=== PATIENT | female | born 1930 | race Caucasian/White ===

== ENCOUNTER 2017-05-20 07:03 | Inpatient (IN) | payer MEDICARE, MEDICAID ==
[2017-05-20 07:25] VITALS: BMI 39.0
--- NOTE | 2017-05-20 07:49 | C.PDOC ---
History Of Present Illness Patient is an 87 y/o female, with a Hx of CHF and asthma, who presents to the ED with complaints of recurring SOB for the last 3-4 days. By remote sensing advisor, patient experiences dyspnea on exertion and recurring bilateral pedal edema; denies CP, fever, or cough. Protein Chemist states patient uses home O2 tank only at night and takes Lasix 20 mg every other day. Patient has no other physical complaints at this time. VIA TRANS recur sob x 3-4 DAYS. HO PRIOR CHF, ASTHMA. +MATTHEWS, RECUR B/L FEET SWELLING. NO CP , FEVER, COUGH. USES HOME O2 "ONLY AT NIGHT". ON LASIX 20 MG QOD EXAM MILD RESP DIST NONTOXIC LUNGS +TACHYPNEA SPEAKING FULL SENTENCES. +SCATTERED OCC EXP WHEEZE, +RALES +2+PITTING EDEMA B/L LE REMAINDE RNEG Time Seen by Provider: 05/20/17 07:27 Chief Complaint (Nursing): Shortness Of Breath History Per: Patient History/Exam Limitations: no limitations Onset/Duration Of Symptoms: Days (3-4 days) Current Symptoms Are (Timing): Still Present Exacerbating Factor(s): Exertion (MATTHEWS) Associated Symptoms: denies: Chest Pain Recent travel outside of the [place]: No Past Medical History Reviewed: Historical Data, Nursing Documentation, Vital Signs Vital Signs: Last Vital Signs Temp 97.6 F 05/21/17 23:15 Pulse 89 05/22/17 04:22 Resp 18 05/22/17 05:10 BP 110/70 05/21/17 23:15 Pulse Ox 96 05/22/17 07:20 - Medical History PMH: Arthritis, Asthma, CHF, HTN, Hypercholesterolemia Surgical History: Cholecystectomy - [facility] Procedures ENDOSC POLYPECTOMY OF LG INTEST (03/15/07) Family History: States: No Known Family Hx - Social History Hx Alcohol Use: No Hx Substance Use: No - Immunization History Hx Tetanus Toxoid Vaccination: Yes Hx Influenza Vaccination: Yes Hx Pneumococcal Vaccination: Yes Review Of Systems Except As Marked, All Systems Reviewed And Found Negative. Constitutional: Negative for: Fever Cardiovascular: Negative for: Chest Pain Respiratory: Positive for: Shortness of Breath, SOB with Excertion. Negative for: Cough Physical Exam - Physical Exam Appears: Non-toxic, In Acute Distress (mild respiratory distress) Skin: Normal Color, Warm, Dry Head: Atraumatic, Normacephalic Oral Mucosa: Moist Respiratory: Rales, Wheezing (scattered occasional expiratory wheeze), Other ( tachypnea) Extremity: Pedal Edema (+2 pitting pedal edema of bilateral LE) Neurological/Psych: Oriented x3, Normal Speech (speaking full sentences) ED Course And Treatment - Laboratory Results Result Diagrams: 05/20/17 08:12 05/20/17 08:12 ECG: Interpreted By Me ECG Rhythm: Sinus Rhythm ECG Interpretation: Normal Rate From EC O2 Sat by Pulse Oximetry: 96 (room air) Pulse Ox Interpretation: Normal (2L) - Radiology CXR: Interpreted by Me CXR Interpretation: Yes: Other (chf) Progress Note: EKG ordered; Nebulizer treatment and High Flow NS administered. Medrol, Albuterol, and Lasix administered. Call for admission by Dr. Ledesma. Progress - Re-Evaluation Re-evaluation Note: 05/20/17 09:18 PT REFUSING BEDPAN USE, PERSIST MATTHEWS FROM STRETCHER TO BEDSIDE COMMODE BUT FEELS BETTER W VAPOTHERM. D/W PMD WILL ADMIT - Data Reviewed Data Reviewed: Lab, Diagnostic imaging, EKG, Old records - Continuity of Care Discussed patient case with:: Patient, Covering for PMD Disposition Counseled Patient/Family Regarding: Studies Performed, Diagnosis - Disposition Disposition: HOSPITALIZED Disposition Time: 09:19 Condition: STABLE - POA Present On Arrival: None - Clinical Impression Clinical Impression: CHF exacerbation, Asthma exacerbation - Scribe Statement The provider has reviewed the documentation as recorded by the Scribe Perla Rodriguez All medical record entries made by the Scribe were at my direction and personally dictated by me. I have reviewed the chart and agree that the record accurately reflects my personal performance of the history, physical exam, medical decision making, and the department course for this patient. I have also personally directed, reviewed, and agree with the discharge instructions and disposition. Decision To Admit - Pt Status Changed To: Hospital Disposition Of: Observation - . Bed Request Type: Telemetry Admitting Physician: Walter Velasquez Patient Diagnosis: CHF exacerbation, Asthma exacerbation
[2017-05-20] MEDS ORDERED: Albuterol 0.042% Inhal Sol (1.25 mg/3 mL) UD INH STA (07:52)
[2017-05-20] MEDS ORDERED: Albuterol 0.042% Inhal Sol (1.25 mg/3 mL) UD ONE (08:17)
[2017-05-20] MEDS ORDERED: MethylPREDNISolone 40 mg Vial ONE (08:17)
[2017-05-20 08:23] LABS: BASO # 0.1 K/uL (0.0-0.2); EOS # 0.5 K/uL (0.0-0.7); EOS % 5.6 % (0.0-4.0); HEMATOCRIT 28.9 % (34.0-47.0); LYMPH # 1.8 K/uL (1.0-4.3); LYMPH % 18.6 % (20.0-40.0); MEAN CELL VOLUME 85.6 fL (81.0-99.0); MEAN CORPUSCULAR HEMOGLOBIN 28.9 pg (27.0-31.0); MEAN CORPUSCULAR HGB CONC 33.8 g/dL (33.0-37.0); MEAN PLATELET VOLUME 7.9 fL (7.2-11.7); MONO # 0.7 K/uL (0.0-0.8); MONO % 7.3 % (0.0-10.0); RED CELL DISTRIBUTION WIDTH 14.8 % (11.5-14.5); WHITE BLOOD COUNT 9.7 K/uL (4.8-10.8)
[2017-05-20 08:36] LABS: VENOUS BLOOD GAS PCO2 48 mmHg (40-60); VENOUS BLOOD PH 7.36 (7.32-7.43)
[2017-05-20 09:04] LABS: CHLORIDE 100 mmol/L (98-107); SODIUM 136 mmol/L (132-148)
[2017-05-20 09:05] LABS: POTASSIUM 4.8 mmol/L (3.6-5.2)
[2017-05-20 09:07] LABS: ALB/GLOB RATIO 1.3 (1.0-2.1); ALKALINE PHOSPHATASE 41 U/L (38-126); ALT/SGPT 55 U/L (9-52); AST/SGOT 34 U/L (14-36); BILIRUBIN,TOTAL 0.5 mg/dL (0.2-1.3); BLOOD UREA NITROGEN 21 mg/dL (7-17); CARBON DIOXIDE 22 mmol/L (22-30); GFR AFRICAN-AMERICAN > 60; GLUCOSE,RANDOM 82 mg/dL (65-105); TOTAL PROTEIN 6.7 g/dL (6.3-8.3)
[2017-05-20 09:08] LABS: CALCIUM 8.7 mg/dl (8.6-10.4)
--- NOTE | 2017-05-20 10:20 | RAD ---
PROCEDURE: CHEST RADIOGRAPH, 1 VIEW HISTORY: Shortness of breath COMPARISON: 05/20/2017 FINDINGS: LUNGS: Prominent diffuse increased interstitial lung markings bilaterally suggestive for moderate to severe venous congestion. Patchy consolidative changes within the right mid and lower lung zones. Small bilateral pleural effusions. Additional patchy consolidative change at the left lung base. PLEURA: As above. CARDIOVASCULAR: Cardiomegaly. Enlarged ectatic aorta. OSSEOUS STRUCTURES: No significant abnormalities. VISUALIZED UPPER ABDOMEN: Normal. OTHER FINDINGS: None. IMPRESSION: Prominent diffuse increased interstitial lung markings bilaterally suggestive for moderate to severe venous congestion. Patchy consolidative changes within the right mid and lower lung zones. Small bilateral pleural effusions. Additional patchy consolidative change at the left lung base. Cardiomegaly. Enlarged ectatic aorta.
[2017-05-20] MEDS ORDERED: Albuterol HFA 90 mcg/actuation (8 g) IH PRN (16:45)
[2017-05-20] MEDS: (Novolog) Insulin Aspart, Recombinant 100 u/ml 10 ml vial SC SCH ×2 (17:00→22:49)
[2017-05-21] MEDS: (Novolog) Insulin Aspart, Recombinant 100 u/ml 10 ml vial SC SCH ×4 (08:25→23:00)
[2017-05-21] MEDS ORDERED: Home Med 1 UNIT (Meloxicam [Meloxicam] 15 MG) PO SCH (10:00)
[2017-05-21] MEDS ORDERED: PROMETHAZINE HCL PO SCH (10:00)
[2017-05-21] MEDS ORDERED: MULTIVITAMIN PO SCH (10:00)
[2017-05-21] MEDS ORDERED: IRON PO SCH (10:00)
[2017-05-21] MEDS ORDERED: FOLIC ACID PO SCH (10:00)
[2017-05-21] MEDS ORDERED: CODEINE PO SCH (10:00)
[2017-05-21] MEDS ORDERED: Digoxin 250 mcg (0.25 mg) Tab PO STA (11:21)
[2017-05-21] MEDS: Multiple Vitamins Tab PO SCH (11:26)
[2017-05-21] MEDS ORDERED: Digoxin 250 mcg (0.25 mg) Tab PO SCH (18:00)
[2017-05-21] MEDS: Digoxin 125 mcg (0.125 mg) Tab PO SCH (18:18)
--- NOTE | 2017-05-22 05:10 | HP ---
HISTORY OF PRESENT ILLNESS: This is an 87 years old [place] female with history of multiple medical problems presented to the emergency room with symptoms of shortness of breath that was progressed over 2 days. The patient was evaluated in the emergency room and she was found to have congestive heart failure subsequently the patient was admitted to telemetry floor. While the patient was in telemetry, she developed atrial fibrillation with rapid ventricular rate. The patient was started on both digoxin as well as metoprolol, continue the metoprolol and she was started on Eliquis 2.5 mg twice a day. The patient denied to have any cough or expectoration. No fever. REVIEW OF SYSTEMS: All other review of systems is negative except for dysfunctional gait with need for walking assistance with a walker or a cane. ALLERGIES: NO KNOWN ALLERGIES. HOME MEDICATIONS: Include Symbicort 1 puff twice a day, bisoprolol 5 mg daily, atorvastatin 20 mg daily, aspirin 81 mg daily, gabapentin 600 mg 3 times a day, alendronate 70 mg daily, Lasix 20 mg daily, glimepiride 2 mg twice a day, Singulair 10 mg daily, and losartan and hydrochlorothiazide 50/12.5 daily, and multivitamin 1 tablet daily. PAST MEDICAL HISTORY: Type 2 diabetes mellitus, hypertension, diabetic neuropathy, hypercholesterolemia, and COPD. SOCIAL HISTORY: No history of smoking, ETOH, or substance abuse. FAMILY HISTORY: Noncontributory. PHYSICAL EXAMINATION: GENERAL: The patient is in bed, comfortable, and not in any cardiopulmonary distress. VITAL SIGNS: At the time of this examination with blood pressure 100/56, temperature 98.7, respiratory rate 20, and pulse is 70. HEENT: Pupils equal and reactive to light. Normal appearing mucosa of the conjunctivae, oropharyngeal, and nasal membrane mucosa. NECK: Supple. No JVD. No carotid bruit. No lymph node. No thyromegaly. CHEST AND LUNGS: Bilateral symmetrical expansion, few basilar rales. CARDIOVASCULAR: PMI not localized. S1 and S2. No additional sounds. ABDOMEN: Normoactive bowel sounds. No tenderness. No organomegaly. No masses. EXTREMITIES: No cyanosis. No clubbing. No edema. CENTRAL NERVOUS SYSTEM: Alert, awake, and oriented x2. No neurological deficit could be appreciated. ASSESSMENT: 1. Congestive heart failure both systolic and diastolic, acute on top of chronic. 2. Chronic obstructive pulmonary disease. 3. . 4. Status post hypertension. 5. Atrial fibrillation with rapid ventricular rate. PLAN: Continue diuretics. We will give the patient another dose of digoxin 0.25 mg. Continue Eliquis and discussed the patient's condition with her son at the bedside. [facility] MD Ron
[2017-05-22 07:35] LABS: BASO # 0.1 K/uL (0.0-0.2); BASO % 0.7 % (0.0-2.0); EOS # 0.5 K/uL (0.0-0.7); EOS % 3.9 % (0.0-4.0); HEMATOCRIT 29.5 % (34.0-47.0); LYMPH # 3.2 K/uL (1.0-4.3); LYMPH % 26.4 % (20.0-40.0); MEAN CELL VOLUME 85.4 fL (81.0-99.0); MEAN CORPUSCULAR HEMOGLOBIN 28.3 pg (27.0-31.0); MEAN CORPUSCULAR HGB CONC 33.1 g/dL (33.0-37.0); MEAN PLATELET VOLUME 7.7 fL (7.2-11.7); RED CELL DISTRIBUTION WIDTH 14.4 % (11.5-14.5); WHITE BLOOD COUNT 11.9 K/uL (4.8-10.8)
[2017-05-22] MEDS: (Novolog) Insulin Aspart, Recombinant 100 u/ml 10 ml vial SC SCH ×4 (07:47→22:33)
[2017-05-22 07:49] LABS: CHLORIDE 93 mmol/L (98-107)
[2017-05-22 07:50] LABS: POTASSIUM 4.2 mmol/L (3.6-5.2); SODIUM 135 mmol/L (132-148)
[2017-05-22 07:52] LABS: GFR AFRICAN-AMERICAN > 60
[2017-05-22 07:53] LABS: BLOOD UREA NITROGEN 35 mg/dL (7-17); CALCIUM 8.9 mg/dl (8.6-10.4); CARBON DIOXIDE 31 mmol/L (22-30); GLUCOSE,RANDOM 120 mg/dL (65-105)
[2017-05-22] MEDS: Multiple Vitamins Tab PO SCH (10:10)
[2017-05-22] MEDS: Albuterol-Ipratrop 3 mg / 0.5 (3 ml) UD INH SCH ×2 (13:30→19:46)
[2017-05-22] MEDS: Digoxin 125 mcg (0.125 mg) Tab PO SCH (18:41)
--- NOTE | 2017-05-23 01:53 | CON ---
DATE: CARDIOLOGY CONSULT REASON FOR CONSULTATION: New onset atrial fibrillation. HISTORY OF PRESENT ILLNESS: The patient is 87 years old morbidly obese, [place] female, who has a history of chronic obstructive lung disease, on home nasal O2 for the past 20 years according to the patient. The patient is unaware of any prior cardiac history and she follows with Dr. Boone as an outpatient. The patient developed rapid atrial fibrillation last night. The patient was started on Lanoxin and Eliquis. The patient denies any retrosternal chest pain. Denies any dizziness or syncope recently. The patient is unaware of any history of coronary artery disease or history of stroke in the past. SOCIAL HISTORY: Nonsmoker. MEDICATIONS: Amaryl 1 mg daily, aspirin 81 mg once a day, Cozaar 50 mg once a day, Crestor 10 mg once a day, albuterol inhaler, Eliquis 2.5 mg twice a day, Lanoxin 0.125 mg once a day, Lasix 20 mg intravenously twice a day, hydrochlorothiazide 12.5 mg once a day, and Zebeta 5 mg daily. REVIEW OF SYSTEMS: No fever or chills. No vomiting or diarrhea. No retrosternal chest pain. No productive cough. PHYSICAL EXAMINATION: GENERAL: The patient is an elderly female who does not appear to be in acute distress. VITAL SIGNS: Blood pressure 134/72, heart rate 96, temperature 98, respirations 18. HEENT: [place] conjunctiva. CHEST: Minimal coarse crepitations basally. HEART: S1 and S2 regular. ABDOMEN: Soft. EXTREMITIES: 2 to 3+ pitting edema. LABORATORY DATA: SMA-7, sodium 135, potassium 4.2, chloride 93, CO2 31, glucose 120, BUN 35, creatinine 1.0. Hemoglobin and hematocrit 9.8 and 29.5, white count is 11.5, platelet count 325,000. Chest x-ray revealed borderline cardiomegaly, moderate CHF, bilateral lower lobe infiltrate can be excluded. EKG on admission on the revealed sinus rhythm at rate of 77. The follow on EKG later on the same day revealed atrial fibrillation with rapid ventricular response at the rate 124. Preliminary echocardiographic study reveled normal ejection fraction, severe pulmonary hypertension, severe mitral insufficiency, significantly dilated left atrium, and mild aortic stenosis. ASSESSMENT: 1. New onset atrial fibrillation. 2. Advanced chronic obstructive lung disease. 3. Rule out underlying pneumonia. 4. Severe mitral insufficiency. 5. Diabetes mellitus. CONDITIONS: Continue current aspirin 81 mg once a day, Cozaar 50 mg once a day, Crestor 2 mg once a day, Eliquis 2.5 mg once a day, Lanoxin 0.125 mg once a day, Lasix 20 mg intravenously twice a day, Zebeta 5 mg daily. Obtain TSH level. I will administer one stat dose of 40 mg of Lasix. Obtain venous Doppler of lower extremities as well as TSH level. Adriel Dang MD
[2017-05-23] MEDS: Albuterol-Ipratrop 3 mg / 0.5 (3 ml) UD INH SCH ×4 (02:12→19:27)
[2017-05-23] MEDS: (Novolog) Insulin Aspart, Recombinant 100 u/ml 10 ml vial SC SCH ×4 (08:12→21:39)
--- NOTE | 2017-05-23 08:55 | PN ---
DATE: 05/22/2017 DAILY PROGRESS NOTE SUBJECTIVE: The patient is seen today on 05/22/2017. She is less short of breath, but the patient has bilateral lower extremity swelling. PHYSICAL EXAMINATION: VITAL SIGNS: Blood pressure is 140/70, temperature 98.2, respiratory rate 20, and pulse 78. HEENT: Pupils equal and reactive to light. Normal-appearing mucosa of the conjunctiva, oropharynx, and nasal membrane mucosa. NECK: Supple. No JVD. No carotid bruit. No lymph node. No thyromegaly. CHEST AND LUNGS: Bilateral symmetrical expansion. Good air exchange. No rales. No rhonchi. CARDIOVASCULAR: PMI not localized. S1 and S2. No additional sounds. ABDOMEN: Normoactive bowel sounds. No tenderness. No organomegaly. No masses. EXTREMITIES: No cyanosis. No clubbing. No edema. MILLING SUPERVISOR: Alert, awake, and oriented x2. No neurological deficit could be appreciated. ASSESSMENT: 1. Atrial fibrillation with rapid ventricular rate. 2. Exacerbation of congestive heart failure. 3. Acute on chronic systolic and diastolic. PLAN: Continue current medications including the diuretics and digoxin and Eliquis. Discussed with the patient and her daughter at the bedside. Walter Velasquez MD
[2017-05-23] MEDS: Multiple Vitamins Tab PO SCH (09:40)
--- NOTE | 2017-05-23 12:59 | CARD ---
APPROVED REPORT EXAM: Two-dimensional and M-mode echocardiogram with Doppler and color Doppler. Other Information Quality : GoodRhythm : NSR INDICATION Dyspnea Congestive Heart Failure COPD arthritis RISK FACTORS Hyperlipidemia 2D DIMENSIONS IVSd1.2 (0.7-1.1cm)LVDd4.0 (3.9-5.9cm) LVOT Diameter2.0 (1.8-2.4cm)PWd1.1 (0.7-1.1cm) LVDs2.6 (2.5-4.0cm)FS (%) 35.0 % LVEF (%)64.9 (>50%) M-Mode DIMENSIONS Left Atrium (MM)4.23 (2.5-4.0cm)Aortic Root3.26 (2.2-3.7cm) Aortic Cusp Exc.1.54 (1.5-2.0cm) Aortic Valve AoV Peak Pcbhcfay849.1cm/sAoV VTI48.6cmAO Peak GR.29mmHg LVOT Peak Nmgxfwru413.9cm/sLVOT VTI24.10cmAO Mean GR.18mmHg SHELLEY (VMAX)1.60ud7TRQ (VTI)1.32qu7GG P 1/2 Vvbh551yv Mitral Valve E/A ratio0.0 TDI E/Lateral E'0.0E/Medial E'0.0 Tricuspid Valve TR Peak Jeelbtyf972et/sTR Peak Gr.83afNtKWTQ17pqMn LEFT VENTRICLE The left ventricle is normal size. There is mild concentric left ventricular hypertrophy. The left ventricular function is normal. The left ventricular ejection fraction is within the normal range. There is normal LV segmental wall motion. Tissue Doppler imaging reveals mild left ventricular diastolic dysfunction. RIGHT VENTRICLE The right ventricle is normal size. There is normal right ventricular wall thickness. The right ventricular systolic function is normal. ATRIA The left atrium is moderately dilated. The right atrium is mildly dilated. The interatrial septum is intact with no evidence for an atrial septal defect. AORTIC VALVE The aortic valve is calcified and displays decreased opening. There is mild to moderate aortic regurgitation. There is moderate valvular aortic stenosis. MITRAL VALVE Mitral annular calcification is moderate. The mitral valve leaflets are calcified. THE POSTERIOR MV LEAFLET APPEARS MODERATELY RESTRICTED. There is no evidence of mitral valve prolapse. There is no mitral valve stenosis. Mitral regurgitation is severe. TRICUSPID VALVE The tricuspid valve is normal in structure. There is mild tricuspid regurgitation. There is severe pulmonary hypertension. There is no tricuspid valve prolapse or vegetation. There is no tricuspid valve stenosis. PULMONIC VALVE The pulmonary valve is normal in structure. There is mild pulmonic valvular regurgitation. There is no pulmonic valvular stenosis. GREAT VESSELS The aortic root is normal in size. The ascending aorta is normal in size. IVC IS DILATED WITH DECREASED RESP COLLAPSE. RAP ESTIMATED AT 20 MMHG <Conclusion> The left ventricular ejection fraction is within the normal range. Tissue Doppler imaging reveals mild left ventricular diastolic dysfunction. There is mild concentric left ventricular hypertrophy. The left atrium is moderately dilated. The right atrium is mildly dilated. The aortic valve is calcified and displays decreased opening. There is mild to moderate aortic regurgitation. There is moderate valvular aortic stenosis. Mitral annular calcification is moderate. The mitral valve leaflets are calcified. THE POSTERIOR MV LEAFLET APPEARS MODERATELY RESTRICTED. Mitral regurgitation is severe. There is mild tricuspid regurgitation. There is severe pulmonary hypertension. THE POSTERIOR MV LEAFLET APPEARS MODERATELY RESTRICTED. IVC IS DILATED WITH DECREASED RESP COLLAPSE. RAP ESTIMATED AT 20 MMHG
--- NOTE | 2017-05-23 15:19 | PN ---
DATE: SUBJECTIVE: The patient denies any dizziness or palpitation. PHYSICAL EXAMINATION: VITAL SIGNS: Blood pressure 103/58, heart rate 78, temperature 98, respirations 18. HEENT: Pale conjunctivae. CHEST: Bilateral rhonchi. HEART: S1 and S2 regular. ABDOMEN: Soft. EXTREMITIES: 2+ pitting edema. LABORATORY DATA: Today's blood sugar is 115. TSH level is within normal limits. ASSESSMENT: 1. Paroxysmal atrial fibrillation. 2. Chronic obstructive lung disease and right-sided heart failure. 3. Uncontrolled diabetes mellitus. 4. Rule out deep venous thrombosis. 5. Severe mitral insufficiency. RECOMMENDATIONS: Continue current Cozaar 50 mg once a day, Crestor 10 mg once a day, Eliquis 2.5 mg twice a day, digoxin 0.125 mg once a day, Lasix 20 mg twice a day, hydrochlorothiazide 12.5 mg once a day. Venous Doppler of lower extremities is still pending. Adriel Dang MD
[2017-05-23] MEDS: Digoxin 125 mcg (0.125 mg) Tab PO SCH (18:36)
[2017-05-23 18:38] VITALS: PULSE 112
[2017-05-23 19:27] VITALS: RESP 20
[2017-05-24] MEDS: Albuterol-Ipratrop 3 mg / 0.5 (3 ml) UD INH SCH ×3 (01:31→13:18)
[2017-05-24 07:58] VITALS: PULSE 98; TEMP 97.8; O2SAT 95
[2017-05-24] MEDS: (Novolog) Insulin Aspart, Recombinant 100 u/ml 10 ml vial SC SCH ×2 (08:00→11:45)
--- NOTE | 2017-05-24 09:38 | PN ---
DATE: 05/23/2017 SUBJECTIVE: The patient is seen today, 05/23/2017. She continued to improve. Echocardiogram showed pulmonary hypertension and mitral regurgitation. PHYSICAL EXAMINATION: VITAL SIGNS: Blood pressure 130/70, temperature 98.2, respiratory rate 18, and pulse is 80. HEENT: Pupils are equal and reactive to light. Normal-appearing mucosa of the conjunctivae, oropharynx and nasal membrane mucosa. NECK: Supple. No JVD. No carotid bruits. No lymph nodes. No thyromegaly. CHEST AND LUNGS: Bilateral symmetrical expansion. Good air exchange. No rales, no rhonchi. CARDIOVASCULAR SYSTEM: PMI not localized. S1 and S2. No additional sounds. ABDOMEN: Normoactive bowel sounds. No tenderness. No organomegaly. No masses. EXTREMITIES: No cyanosis, no clubbing, no edema. CENTRAL NERVOUS SYSTEM: Alert, awake, and oriented x3. No neurological deficits could be appreciated. ASSESSMENT: 1. Exacerbation of diastolic congestive heart failure, [id number]. 2. Atrial fibrillation with rapid ventricular rate. 3. Severe pulmonary hypertension. PLAN: Continue the current management and add Cardizem 30 mg q. 8 hours. Follow cardiology recommendations. Walter Velasquez MD
[2017-05-24] MEDS: Multiple Vitamins Tab PO SCH (10:44)
[2017-05-24 10:54] VITALS: BP 116/64
--- NOTE | 2017-05-24 11:18 | PCM.HF ---
Heart Failure Core Measure - Heart Failure Ejection Fraction: 40 % or Greater (EF >60%) ISABELLA Inhibitor Prescribed: No Contraindication/Reason for not providing: ON ARB Beta-Abby Prescribed: Bisoprolol Angiotensin II Receptor Abby Prescribed: Yes Aldosterone Antagonist Prescribed: No Hydralazine Nitrate Prescribed: No Contraindication/Reason for not providing: EF>40% Implantable Cardioverter Defibrillator Therapy: No Contraindication/Reason for not providing: EF>40% Cardiac Resynchronization Therapy Prescribed: No Contraindication/Reason for not providing: not indicated
--- NOTE | 2017-05-24 11:48 | CARD ---
APPROVED REPORT EKG Measurement Heart [id number] <Conclusion> Atrial fibrillation with rapid ventricular response Inferior infarct, age undetermined Abnormal ECG
--- NOTE | 2017-05-24 11:55 | CARD ---
APPROVED REPORT EKG Measurement Heart [id number] <Conclusion> Normal sinus rhythm Normal ECG
--- NOTE | 2017-05-24 17:49 | CP.PCM.PN ---
Subjective - Date & Time of Evaluation Date of Evaluation: 05/24/17 Time of Evaluation: 11:00 - Subjective Subjective: Alert, awake, denies sob or chest pains, pedal edema improving. Objective - Vital Signs/Intake and Output Vital Signs (last 24 hours): Temp Pulse Resp BP Pulse Ox 97.8 F 98 H 20 116/64 95 05/24/17 07:20 05/24/17 07:20 05/24/17 07:20 05/24/17 10:44 05/24/17 07:20 - Labs Labs: 05/22/17 07:26 05/22/17 07:26 Assessment and Plan - Assessment and Plan (Free Text) Assessment: Patient is seen and examined. Alert, orientedx3, denies pain or distress. HR RUNS AT 90'S added cardizem to the home medications. D/W DR Velasquez, plan to discharge home today. Advised to follow up in the office in 1 week.
[2017-05-27] MEDS ORDERED: Ergocalciferol 50,000 Intl Units Cap PO SCH (10:00)
== END 2017-05-24 16:55 | disposition home or self-care (01) | DRG 292 ==
LOC: C.ER 07:03 → C.9E 09:20 → C.6T 09:54 → OBSVTOIN 05-21 15:24
PROVIDERS: ADMIT Internal Medicine; ATTEND Internal Medicine
DX: I11.0 Hypertensive heart disease with heart failure (principal); I50.43 Acute on chronic combined systolic (congestive) and diastolic (congestive) heart failure; J45.901 Unspecified asthma with (acute) exacerbation; E11.40 Type 2 diabetes mellitus with diabetic neuropathy, unspecified; E11.65 Type 2 diabetes mellitus with hyperglycemia; I27.2 Other secondary pulmonary hypertension; J44.9 Chronic obstructive pulmonary disease, unspecified; E66.01 Morbid (severe) obesity due to excess calories; I48.0 Paroxysmal atrial fibrillation; E78.00 Pure hypercholesterolemia, unspecified; I34.0 Nonrheumatic mitral (valve) insufficiency; Z99.81 Dependence on supplemental oxygen; Z79.01 Long term (current) use of anticoagulants; Z79.51 Long term (current) use of inhaled steroids; Z79.82 Long term (current) use of aspirin; Z79.83 Long term (current) use of bisphosphonates; Z79.84 Long term (current) use of oral hypoglycemic drugs; Z79.899 Other long term (current) drug therapy

== ENCOUNTER 2017-09-03 12:46 | Inpatient (IN) | payer MEDICARE, MEDICAID ==
[2017-09-03 12:47] VITALS: PULSE 112
[2017-09-03 12:53] VITALS: BMI 37.8
[2017-09-03] MEDS ORDERED: Albuterol-Ipratrop 3 mg / 0.5 (3 ml) UD INH STA (15:25)
--- NOTE | 2017-09-03 15:53 | RAD ---
Chest x-ray single frontal view History: Shortness of breath. Comparison: None available. Findings: Mild venous congestion. Patchy increased markings at the lung bases with small bilateral pleural effusions. Bilateral hilar prominence. Tortuous ectatic aorta. Cardiomegaly. Degenerative changes in the spine and shoulders. Impression: Mild venous congestion. Patchy increased markings at the lung bases with small bilateral pleural effusions. Bilateral hilar prominence. Tortuous ectatic aorta. Cardiomegaly.
[2017-09-03 15:58] LABS: BASO % 0.6 % (0.0-2.0); EOS # 0.1 K/uL (0.0-0.7); HEMOGLOBIN 11.7 g/dL (11.0-16.0); LYMPH # 2.3 K/uL (1.0-4.3); LYMPH % 31.5 % (20.0-40.0); MEAN CELL VOLUME 84.1 fL (81.0-99.0); MEAN CORPUSCULAR HEMOGLOBIN 27.8 pg (27.0-31.0); MEAN CORPUSCULAR HGB CONC 33.1 g/dL (33.0-37.0); MEAN PLATELET VOLUME 9.5 fL (7.2-11.7); MONO # 0.5 K/uL (0.0-0.8); MONO % 7.2 % (0.0-10.0); NEUT # 4.3 K/uL (1.8-7.0); NEUT % 58.7 % (50.0-75.0); NRBC % 0.1 % (0.0-2.0); RBC 4.19 Mil/uL (3.80-5.20); RED CELL DISTRIBUTION WIDTH 16.1 % (11.5-14.5); WHITE BLOOD COUNT 7.3 K/uL (4.8-10.8)
--- NOTE | 2017-09-03 16:18 | C.PDOC ---
History Of Present Illness 87 year old female, whose PMHx includes CHF, Hypertension, Aortic Stenosis, Mitral Valve Regurgitation, presents to the ED for evaluation of shortness of breath which began around 2 weeks ago. Patient satates her stmproms have been worsening. As per , who is at bedside, patient has been compliant with her medications. Patient denies fever, chills, chest pain, cough. Time Seen by Provider: 09/03/17 13:18 Chief Complaint (Nursing): Shortness Of Breath History Per: Patient, Family ( ) History/Exam Limitations: no limitations Onset/Duration Of Symptoms: Other (2 weeks ) Current Symptoms Are (Timing): Worse Current Respiratory Medications: See Home Med List Associated Symptoms: denies: Fever, Chills, Chest Pain, Bloody Cough, Productive Cough Additional History Per: Patient Past Medical History Reviewed: Historical Data, Nursing Documentation, Vital Signs Vital Signs: Last Vital Signs Temp 98.8 F 09/03/17 17:00 Pulse 92 H 09/03/17 17:00 Resp 18 09/03/17 17:00 BP 127/78 09/03/17 17:05 Pulse Ox 100 09/03/17 19:46 - Medical History PMH: Arthritis, Asthma, CHF, HTN, Hypercholesterolemia Surgical History: Cholecystectomy - [facility] Procedures ENDOSC POLYPECTOMY OF LG INTEST (03/15/07) Family History: States: Unknown Family Hx - Social History Hx Alcohol Use: No Hx Substance Use: No - Immunization History Hx Tetanus Toxoid Vaccination: Yes Hx Influenza Vaccination: Yes Hx Pneumococcal Vaccination: Yes Review Of Systems Constitutional: Negative for: Fever, Chills Cardiovascular: Negative for: Chest Pain Respiratory: Positive for: Shortness of Breath. Negative for: Cough Physical Exam - Physical Exam Appears: Non-toxic, No Acute Distress, Other (elderly obese female ) Skin: Normal Color, Warm, Dry Head: Atraumatic, Normacephalic Eye(s): bilateral: Normal Inspection Oral Mucosa: Moist Neck: Supple Chest: Symmetrical, No Deformity, No Tenderness Cardiovascular: Rhythm Regular, No Murmur Respiratory: Normal Breath Sounds, No Rales, No Rhonchi, No Wheezing Extremity: Normal ROM, Capillary Refill (less than 2 seconds ), Other (mild edema to b/l lower extremities ) Neurological/Psych: Oriented x3, Normal Speech, Normal Cognition Gait: Steady ED Course And Treatment - Laboratory Results Result Diagrams: 09/03/17 15:45 09/03/17 15:45 Lab Interpretation: Abnormal (trop neg, BNP 6800H) ECG: Interpreted By Me ECG Rhythm: Atrial Fibrillation ECG Interpretation: No Changes From Prior Rate From EC O2 Sat by Pulse Oximetry: 100 (on RA) Pulse Ox Interpretation: Normal - Radiology CXR: Interpreted by Me CXR Interpretation: Yes: Other (+ R sided enlargement, + CHF) - Other Rad CXR X-Ray: Interpreted by Me, Viewed By Me, Read By Radiologist Interpretation: Impression: Mild venous congestion. Patchy increased markings at the lung bases with small bilateral pleural effusions. Bilateral hilar prominence. Tortuous ectatic aorta. Cardiomegaly. Progress Note: bisoprolol 5 mg PO, lasix 40 IV Reevaluation Time: 16:45 Reassessment Condition: Improved - Physician Consult Information Outcome Of Conversation: 1645: d/w PMD anaid Leslie to give lasix and bisoprolol and admit tele Medical Decision Making Medical Decision Making: euvolemia but CHF prob related to moderate aortic stenosis and moderate mitral regurg and ++ pulm htn with diastolic dysfunction. Though BB will improve cardiac output in diastolic dysfunction w normal EJF, pt with symptomatic euvolemic CHF related to aortic stenosis is concerning and should be cautiously diuresed to avoid robbing her preload. Disposition Doctor Will See Patient In The: Hospital Counseled Patient/Family Regarding: Studies Performed, Diagnosis - Disposition Disposition: HOSPITALIZED Disposition Time: 16:48 Condition: FAIR - Clinical Impression Clinical Impression: Chronic congestive heart failure - Scribe Statement The provider has reviewed the documentation as recorded by the Scribe (Irina Velasco) Provider Attestation: All medical record entries made by the Scribe were at my direction and personally dictated by me. I have reviewed the chart and agree that the record accurately reflects my personal performance of the history, physical exam, medical decision making, and the department course for this patient. I have also personally directed, reviewed, and agree with the discharge instructions and disposition.
[2017-09-03 16:19] LABS: ALB/GLOB RATIO 1.1 (1.0-2.1); ALT/SGPT 18 U/L (9-52); AST/SGOT 26 U/L (14-36); BLOOD UREA NITROGEN 23 mg/dL (7-17); CALCIUM 8.6 mg/dl (8.6-10.4); GFR AFRICAN-AMERICAN > 60; GFR NON-AFRICAN AMERICAN 59
[2017-09-03 16:31] LABS: B-TYPE NATRIURETIC PEPTIDE 6810 pg/mL (0-900)
[2017-09-03] MEDS: Piperacill/Tazo 2.25gm in Dex 2.25 GM/50 ML BAG IVPB SCH (23:15)
[2017-09-04] MEDS ORDERED: Albuterol-Ipratrop 3 mg / 0.5 (3 ml) UD ONE (02:18)
[2017-09-04] MEDS: Albuterol-Ipratrop 3 mg / 0.5 (3 ml) UD INH PRN (02:26)
[2017-09-04] MEDS: Piperacill/Tazo 2.25gm in Dex 2.25 GM/50 ML BAG IVPB SCH ×3 (05:20→16:34)
[2017-09-04] MEDS: (Novolog) Insulin Aspart, Recombinant 100 u/ml 10 ml vial SC SCH ×4 (07:35→22:00)
[2017-09-04] MEDS ORDERED: Multivitamin With Minerals Tab PO ONE (08:11)
[2017-09-04] MEDS: diltiaZEM 120 mg/24 Hours CD Cap PO SCH (09:58)
[2017-09-04] MEDS: Multiple Vitamins Tab PO SCH (09:59)
[2017-09-05] MEDS: Piperacill/Tazo 2.25gm in Dex 2.25 GM/50 ML BAG IVPB SCH ×5 (00:08→22:23)
--- NOTE | 2017-09-05 07:02 | HP ---
HISTORY OF PRESENT ILLNESS: This is an 87-year-old [place] Islander female with history of multiple medical problems presented to emergency room with symptoms of progressive shortness of breath over 2 days duration. The patient was evaluated in the emergency room where she was found to be in congestive heart failure. The patient was given diuretics and admitted for further management. Chest x-ray also showed possible bilateral lower lobe infiltration and the patient was started on IV antibiotics. Other review of systems is negative. ALLERGIES NO KNOWN ALLERGIES. MEDICATIONS As per MAR. SOCIAL HISTORY No history of smoking, EtOH, or substance abuse. FAMILY HISTORY Noncontributory. PAST MEDICAL HISTORY Hypertension, type 2 diabetes mellitus, aortic stenosis, paroxysmal atrial fibrillation. PHYSICAL EXAMINATION GENERAL: The patient is in bed, not in cardiopulmonary distress at the time of this examination. VITAL SIGNS: Blood pressure 120/67, temperature 97.6, respiratory rate 20, and pulse 98. HEENT: Pupils equal, reactive to light. Normal-appearing mucosa of the conjunctivae. Oropharynx and nasal membrane mucosa. NECK: Supple. No JVD. No carotid bruit. No lymph node. No thyromegaly. CHEST AND LUNGS: Bilateral symmetrical expansion. Good air exchange. Bilateral basilar rales. CARDIOVASCULAR SYSTEM: PMI not localized. S1 and S2 and positive ejection systolic murmur along the aortic area. ABDOMEN: Normoactive bowel sounds. No tenderness. No organomegaly. No masses. EXTREMITIES: No cyanosis, no clubbing, no edema. CENTRAL NERVOUS SYSTEM: Alert, awake, oriented x2. No neurological deficit could be appreciated. ASSESSMENT 1. Exacerbation of diastolic congestive heart failure, acute on chronic. 2. Severe pulmonary hypertension. 3. Aortic stenosis. 4. Type 2 diabetes mellitus. 5. Hypertension. PLAN: Continue current medications and diuretics and monitor electrolytes. Discussed the patient's condition with her son at the bedside. Walter Velasquez MD
[2017-09-05] MEDS: (Novolog) Insulin Aspart, Recombinant 100 u/ml 10 ml vial SC SCH ×4 (08:02→21:28)
[2017-09-05] MEDS: Multiple Vitamins Tab PO SCH (09:56)
[2017-09-05] MEDS: diltiaZEM 120 mg/24 Hours CD Cap PO SCH (10:00)
[2017-09-05] MEDS: Albuterol-Ipratrop 3 mg / 0.5 (3 ml) UD INH PRN (10:30)
[2017-09-05 16:17] LABS: ALB/GLOB RATIO 1.1 (1.0-2.1); CALCIUM 8.8 mg/dl (8.6-10.4)
--- NOTE | 2017-09-05 23:15 | CARD ---
APPROVED REPORT EKG Measurement Heart [id number] <Conclusion> Atrial fibrillation Cannot rule out Inferior infarct, age undetermined Abnormal ECG
--- NOTE | 2017-09-06 02:11 | PN ---
DATE: 09/05/2017 DAILY PROGRESS NOTE SUBJECTIVE: Patient is seen today on 09/05/2017. She is not in any cardiopulmonary distress as she was seen today. PHYSICAL EXAMINATION: VITAL SIGNS: Blood pressure is 94/48, temperature 97.7, respiratory rate 19 and pulse 89. HEENT: Pupils equal, reactive to light. Normal appearing mucosa of the conjunctivae, oropharynx and nasal membrane mucosa. NECK: Supple. No JVD. No carotid bruit. No lymph node. No thyromegaly. CHEST AND LUNGS: Bilateral symmetrical expansion. Good air exchange. Bilateral rales. CARDIOVASCULAR: PMI not localized. S1 and S2. No additional sounds. ABDOMEN: Normoactive bowel sounds. No tenderness. No organomegaly. No masses. EXTREMITIES: No cyanosis, no clubbing, no edema. CENTRAL NERVOUS SYSTEM: Alert, awake, oriented x3. No neurological deficit could be appreciated. ASSESSMENT: 1. Exacerbation of congestive heart failure, acute on top chronic diastolic. 2. Aortic stenosis. 3. Pulmonary hypertension. PLAN: Continue current diuretics and hold the blood pressure medications for hypertension. Monitor electrolytes. Vielka MD Ron
[2017-09-06] MEDS: Piperacill/Tazo 2.25gm in Dex 2.25 GM/50 ML BAG IVPB SCH ×4 (05:02→22:04)
[2017-09-06] MEDS: Albuterol-Ipratrop 3 mg / 0.5 (3 ml) UD INH PRN ×2 (06:50→13:12)
[2017-09-06] MEDS: (Novolog) Insulin Aspart, Recombinant 100 u/ml 10 ml vial SC SCH ×4 (07:30→21:35)
[2017-09-06] MEDS: diltiaZEM 120 mg/24 Hours CD Cap PO SCH (09:48)
[2017-09-06] MEDS: Multiple Vitamins Tab PO SCH (10:00)
[2017-09-06] MEDS ORDERED: Sodium Chloride 0.9% 1,000 ML IV SCH (21:30)
[2017-09-06 21:38] VITALS: RESP 20
--- NOTE | 2017-09-06 22:05 | PN ---
DATE: 09/06/2017 DAILY PROGRESS NOTE SUBJECTIVE: Patient is seen today on 09/06/2017. She has decreased shortness of breath and cough. PHYSICAL EXAMINATION: VITAL SIGNS: Blood pressure 110/60, temperature 98.5, respiratory rate 18, and pulse 85. HEENT: Pupils equal, reactive to light. Normal appearing mucosa of the conjunctivae, oropharynx and nasal membrane mucosa. NECK: Supple. No JVD. No carotid bruit. No lymph node. No thyromegaly. CHEST AND LUNGS: Bilateral symmetrical expansion. Good air exchange. No rales, no rhonchi. CARDIOVASCULAR SYSTEM: PMI not localized. S1 and S2. No additional sounds. ABDOMEN: Normoactive bowel sounds. No tenderness. No organomegaly. No masses. EXTREMITIES: No cyanosis, no clubbing, no edema. CENTRAL NERVOUS SYSTEM: Alert, awake, oriented x3. No neurological deficit could be appreciated. ASSESSMENT: 1. Severe pulmonary hypertension with right-sided heart failure secondary to left-sided diastolic failure. 2. Type 2 diabetes mellitus. 3. Atherosclerotic cardiovascular disease. PLAN: We will stop the Lasix and give the patient IV fluids as serum creatinine today is 1.8. Walter Velasquez MD
[2017-09-07] MEDS: Piperacill/Tazo 2.25gm in Dex 2.25 GM/50 ML BAG IVPB SCH ×2 (04:14→11:56)
[2017-09-07] MEDS: (Novolog) Insulin Aspart, Recombinant 100 u/ml 10 ml vial SC SCH ×3 (08:35→16:48)
[2017-09-07] MEDS: diltiaZEM 120 mg/24 Hours CD Cap PO SCH (11:55)
[2017-09-07] MEDS: Multiple Vitamins Tab PO SCH (11:56)
[2017-09-07] MEDS ORDERED: guaiFENesin DM 100 mg-10 mg/5 ml UD PO PRN (13:03)
[2017-09-07] MEDS ORDERED: Albuterol-Ipratrop 3 mg / 0.5 (3 ml) UD INH SCH (14:00)
[2017-09-07 15:17] LABS: BLOOD UREA NITROGEN 32 mg/dL (7-17); GFR AFRICAN-AMERICAN > 60; GFR NON-AFRICAN AMERICAN 52
--- NOTE | 2017-09-07 15:19 | RAD ---
PROCEDURE: CHEST RADIOGRAPH, 1 VIEW HISTORY: Shortness of breath COMPARISON: 09/03/2017. FINDINGS: LUNGS: There is redemonstration of bilateral lower lobe airspace disease. There is mild pulmonary venous congestion. PLEURA: No pneumothorax suspect bilateral pleural effusions. CARDIOVASCULAR: There is cardiomegaly. OSSEOUS STRUCTURES: No significant abnormalities. VISUALIZED UPPER ABDOMEN: Normal. OTHER FINDINGS: None. IMPRESSION: Persistent cardiomegaly and pulmonary venous congestion. And bibasilar Bibasilar airspace disease which may represent atelectasis or pneumonia. Also suspected are bilateral pleural effusions.
[2017-09-07] MEDS ORDERED: Potassium Chloride 20 mEq ER Tab PO SCH (15:45)
[2017-09-07 15:53] VITALS: PULSE 87; TEMP 98.4; O2SAT 98
[2017-09-07] MEDS ORDERED: Potassium Chloride 20 mEq ER Tab PO ONE (16:00)
[2017-09-07 16:28] VITALS: BP 95/68
--- NOTE | 2017-09-07 17:00 | CP.PCM.PN ---
Subjective - Date & Time of Evaluation Date of Evaluation: 09/07/17 Time of Evaluation: 17:00 - Subjective Subjective: PATIENT WAS ADMITTED FOR CHF, PULM HTN, AND AORTIC STENOSIS; AAOX3 ;COMPLAINING SORE THROAT AND COUGH; DENIES SOB OR CHEST PAIN; NO SIGN DISTRESS NOTED Objective - Vital Signs/Intake and Output Vital Signs (last 24 hours): Temp Pulse Resp BP Pulse Ox 98.4 F 87 20 95/68 L 98 09/07/17 15:45 09/07/17 15:45 09/07/17 15:45 09/07/17 16:27 09/07/17 15:45 Intake and Output: 09/07/17 09/07/17 06:59 18:59 Intake Total 910 840 Output Total 300 Balance 610 840 - Medications Medications: Current Medications Albuterol/Ipratropium (Duoneb 3 Mg/0.5 Mg (3 Ml) Ud) 3 ml INH RQ6 PRN PRN Reason: Shortness of Breath Last Admin: 09/06/17 13:12 Dose: 3 ml Albuterol/Ipratropium (Duoneb 3 Mg/0.5 Mg (3 Ml) Ud) 3 ml INH RQ6 JENSEN Last Admin: 09/07/17 13:38 Dose: 3 ml Apixaban (Eliquis) 2.5 mg PO Q12 JENSEN Last Admin: 09/07/17 11:55 Dose: 2.5 mg Aspirin (Ecotrin) 81 mg PO DAILY JENSEN Last Admin: 09/07/17 11:55 Dose: 81 mg Bisoprolol Fumarate (Zebeta) 5 mg PO DAILY JENSEN Last Admin: 09/07/17 11:55 Dose: 5 mg Diltiazem HCl (Cardizem Cd) 120 mg PO DAILY JENSEN Last Admin: 09/07/17 11:55 Dose: 120 mg Gabapentin (Neurontin) 300 mg PO BID [facility] Last Admin: 09/07/17 11:56 Dose: 300 mg Glimepiride (Amaryl) 2 mg PO BID JENSEN Last Admin: 09/07/17 11:55 Dose: 2 mg Guaifenesin/Dextromethorphan (Robitussin Dm) 5 ml PO Q4H PRN PRN Reason: Cough Last Admin: 09/07/17 14:32 Dose: 5 ml Hydrochlorothiazide (Microzide) 12.5 mg PO DAILY [facility] Last Admin: 09/07/17 11:55 Dose: 12.5 mg Insulin Aspart (Novolog) 0 unit SC ACHS [facility] PRN Reason: Protocol Last Admin: 09/07/17 16:48 Dose: Not Given Losartan Potassium (Cozaar) 50 mg PO DAILY [facility] Last Admin: 09/07/17 12:08 Dose: Not Given Montelukast Sodium (Singulair) 10 mg PO HS [facility] Last Admin: 09/06/17 22:05 Dose: 10 mg Multivitamins (Hexavitamin) 1 tab PO DAILY [facility] Last Admin: 09/07/17 11:56 Dose: 1 tab Rosuvastatin Calcium (Crestor) 10 mg PO HS [facility] Last Admin: 09/06/17 22:05 Dose: 10 mg - Labs Labs: 09/03/17 15:45 09/07/17 14:58 Assessment and Plan - Assessment and Plan (Free Text) Assessment: A/P PATIENT IS SEEN AND EXAMINED AT THE BEDSIDE; CHEST XRAY STAT ORDER SHOW MINIMAL BILATERAL PLEURAL EFFUSION BMP SHOW CREATINE IMPROVE TO 1.0 PATIENT REFUSE TO STAY; PATIENT AND PATIENT WANT TO GO HOME IV LASIX 20 MG STAT GIVEN AND 20 MEQ PO POTASSIUM PRIOR TO DC DISCUSS WITH PMD DR MARIANO WHO AGREE WITH THE PLAN FOLLOW UP WITH DR MARIANO IN HIS OFFICE IN WEEK ---CALL TO CONFIRM APPOINTMENT CONTINUE ALL YOUR HOME MEDICATION ORDER NEW PRESCRIPTION GIVEN: ELIQUIS 2.5 MG EVERY 12 HOUR BY MOUTH GABAPENTIN 300 BY MOUTH TWICE A DAY TAKE YOUR BLOOD PRESSURE BEFOER TAKING YOUR LOSARTAN/HCTZ IF THE TOP NUMBER(SYSTOLIC) IS BELOW 100 SKIP THE DOSE AND RECHECK THE BLOOD PRESSURE LATER BEFORE YOUR NEXT DOSE AND REPEAT THE PREVIOUS SCENARIO IF IT LOW IF BLOOD PRESSURE IS NORMAL CONTINUE TO TAKE ORDER EAT A BANANA EVERY OTHER DAY FOR THE NEXT 2 WEEKS FOR LOW POTASSIUM CALL DR MARIANO OR GO THE EMERGENCY ROOM IF SYMPTOMS RETURN OR WORSENING DISCUSS WITH PATIENT WHO AGREE AND VERBALIZED UNDERSTANDING
--- NOTE | 2017-09-08 05:37 | DS ---
REASON FOR ADMISSION: An 87-year-old [place] female with history of multiple medical problems, was admitted for exacerbation of congestive heart failure, acute and chronic, diastolic and systolic with severe pulmonary retention. COURSE OF HOSPITALIZATION: Patient was admitted to Intensive Care Unit and she was started on IV diuretics. Electrolytes and kidney function was monitored and patient had elevation of serum creatinine. The patient was gently hydrated and she felt better and she was discharged home to continue her preadmission medications including Lasix and her anticoagulant as well as her diabetic medications. The patient's daughter was at the bedside and discussed with her all the details of the patient's condition. The patient wanted to go home also on the day of discharge. FINAL DIAGNOSES: 1. Exacerbation of congestive heart failure, acute and chronic, systolic and diastolic. 2. Type 2 diabetes mellitus. 3. Hypertension. 4. Osteoarthritis. [facility] MD Ron
--- NOTE | 2017-09-08 20:24 | CP.PCM.CON ---
History of Present Illness - History of Present Illness History of Present Illness: 87 year old female, whose PMHx includes CHF, Hypertension, Aortic Stenosis, Mitral Valve Regurgitation, presents to the ED for evaluation of shortness of breath which began around 2 weeks ago. Patient satates her stmproms have been worsening. As per , who is at bedside, patient has been compliant with her medications. Patient denies fever, chills, chest pain, cough. Chief Complaint (Nursing): Shortness Of Breath History Per: Patient, Family ( ) History/Exam Limitations: no limitations Onset/Duration Of Symptoms: Other (2 weeks ) Current Symptoms Are (Timing): Worse Current Respiratory Medications: See Home Med List Associated Symptoms: denies: Fever, Chills, Chest Pain, Bloody Cough, Productive Cough Additional History Per: Patient - Medical History PMH: Arthritis, Asthma, CHF, HTN, Hypercholesterolemia Surgical History: Cholecystectomy - [facility] ENDOSC POLYPECTOMY OF LG INTEST (03/15/07) Family History: States: Unknown Family Hx - Social History Hx Alcohol Use: No Hx Substance Use: No - Immunization History Hx Tetanus Toxoid Vaccination: Yes Hx Influenza Vaccination: Yes Hx Pneumococcal Vaccination: Yes Review Of Systems Constitutional: Negative for: Fever, Chills Cardiovascular: Negative for: Chest Pain Respiratory: Positive for: Shortness of Breath. Negative for: Cough Physical Exam - Physical Exam Appears: Non-toxic, No Acute Distress, Other (elderly obese female ) Skin: Normal Color, Warm, Dry Head: Atraumatic, Normacephalic Eye(s): bilateral: Normal Inspection Oral Mucosa: Moist Neck: Supple Chest: Symmetrical, No Deformity, No Tenderness Cardiovascular: Rhythm Regular, No Murmur Respiratory: Normal Breath Sounds, No Rales, No Rhonchi, No Wheezing Extremity: Normal ROM, Capillary Refill (less than 2 seconds ), Other (mild edema to b/l lower extremities ) Neurological/Psych: Oriented x3, Normal Speech, Normal Cognition Gait: Steady Past Patient History - Past Social History Smoking Status: Never Smoked - CARDIAC Hx Congestive Heart Failure: Yes Hx Hypercholesterolemia: Yes Hx Hypertension: Yes - PULMONARY Hx Asthma: Yes - NEUROLOGICAL Hx Neurological Disorder: No - HEENT Hx Cataracts: Yes - ENDOCRINE/METABOLIC Hx Diabetes Mellitus Type 2: Yes - HEMATOLOGICAL/ONCOLOGICAL Hx Blood Disorders: No Hx Blood Transfusions: No - INTEGUMENTARY Hx Dermatological Problems: No - MUSCULOSKELETAL/RHEUMATOLOGICAL Hx Arthritis: Yes - GASTROINTESTINAL Hx Gastrointestinal Disorders: Yes (Hx Cholecystectomy) - PSYCHIATRIC Hx Substance Use: No - SURGICAL HISTORY Hx Cholecystectomy: Yes - ANESTHESIA Hx Anesthesia: Yes Hx Anesthesia Reactions: No Hx Malignant Hyperthermia: No Has any member of the family had a problem w/ anesthesia?: No Meds Home Medications: Home Medication List Medication Instructions Recorded Confirmed Type Apixaban [Eliquis] 2.5 mg PO Q12 #60 tab 09/07/17 Rx Gabapentin 300 mg PO BID #60 tablet 09/07/17 Rx Allergies/Adverse Reactions: Allergies Allergy/AdvReac Type Severity Reaction Status Date / Time No Known Allergies Allergy Verified 09/03/17 12:52 Results - Vital Signs Recent Vital Signs: Last Vital Signs Temp 98.4 F 09/07/17 15:45 Pulse 87 09/07/17 15:45 Resp 20 09/07/17 15:45 BP 95/68 L 09/07/17 16:27 Pulse Ox 98 09/07/17 15:45 - Labs Result Diagrams: 09/03/17 15:45 09/07/17 14:58 Assessment & Plan - Assessment and Plan (Free Text) Assessment: 1. Dyspnea improving 2. Moderate to severe MR 3. Moderate Continue current meds Covering for Dr. Boone
[2017-09-10] MEDS ORDERED: Home Med 1 UNIT (Alendronate Sodium [Binosto] 70 MG) PO SCH ×2 (10:00)
== END 2017-09-07 17:38 | disposition home or self-care (01) | DRG 293 ==
LOC: C.ER 12:46 → C.9E 16:42 → C.9I 09-04 09:17 → C.5S 09-06 20:14
PROVIDERS: ADMIT Internal Medicine; ATTEND Internal Medicine
DX: I11.0 Hypertensive heart disease with heart failure (principal); I27.20 Pulmonary hypertension, unspecified; I48.0 Paroxysmal atrial fibrillation; E11.9 Type 2 diabetes mellitus without complications; I50.43 Acute on chronic combined systolic (congestive) and diastolic (congestive) heart failure; E78.00 Pure hypercholesterolemia, unspecified; I25.10 Atherosclerotic heart disease of native coronary artery without angina pectoris; J45.909 Unspecified asthma, uncomplicated; M19.90 Unspecified osteoarthritis, unspecified site; I08.0 Rheumatic disorders of both mitral and aortic valves